=== PATIENT | male | born 1985 | race Hispanic/Latino ===

== ENCOUNTER 2020-06-20 01:02 | Inpatient (IN) | payer OTHER, SELFPAY ==
[2020-06-20] VITALS (12 sets, daily range): BP systolic 109–155; BP diastolic 65–94
[~2020-06-20] VITALS: Ht 182.9 cm; Wt 86.2 kg
[2020-06-20] MEDS ORDERED: SODIUM CHLORIDE 0.9% 500ML 500 ML IV ONE (01:37)
[2020-06-20] MEDS ORDERED: ONDANSETRON HCL 4 MG/2 ML VIAL ONE (02:06)
[2020-06-20] MEDS ORDERED: BENZONATATE 100 MG CAPSULE PO ONE (02:07)
[2020-06-20 02:33] LABS: BASOPHILS % (AUTO) 0.3 % (0.0-5.0); EOSINOPHILS % (AUTO) 0.3 % (0.0-8.0); HEMATOCRIT 56.3 % (42-54); LYMPHOCYTES % (AUTO) 6.5 % (21.0-51.0); MEAN CORPUSCULAR HEMOGLOBIN 28.3 pg (27.0-33.0); MEAN CORPUSCULAR HGB CONC 34.6 g/dL (32.0-36.0); MEAN CORPUSCULAR VOLUME 81.8 fL (79-99); MONOCYTES % (AUTO) 5.9 % (3.0-13.0); NEUTROPHILS % (AUTO) 85.8 % (40.0-77.0); PLATELET COUNT (AUTO) 424 K/uL (130-400); RED BLOOD CELL COUNT(AUTO) 6.88 MIL/uL (4.50-6.20); RED CELL DISTRIBUTION WIDTH 12.8 % (11.0-15.5); WHITE BLOOD COUNT (AUTO) 20.6 K/uL (4.8-10.8)
[2020-06-20 02:37] LABS: RAPID GROUP A STREP NEGATIVE (NEGATIVE)
[2020-06-20 02:50] LABS: ALBUMIN 5.1 g/dL (3.5-5.0); BILIRUBIN,TOTAL 0.7 mg/dL (0.2-1.0); CREATININE 2.2 mg/dL (0.5-1.5); MAGNESIUM 1.9 mg/dL (1.80-2.40); POTASSIUM 3.9 mmol/L (3.5-5.1); TOTAL PROTEIN, SERUM 9.3 g/dL (6.0-8.3)
[2020-06-20] MEDS ORDERED: SODIUM CHLORIDE 0.9% 100 ML IV ONE (03:09)
[2020-06-20] MEDS ORDERED: INSULIN HUMULIN R 100 UNIT/ML 3ML ONE (03:10)
[2020-06-20] MEDS ORDERED: ONDANSETRON HCL 4 MG/2 ML VIAL IV PRN (03:30)
[2020-06-20] MEDS ORDERED: ACETAMINOPHEN 325 MG TAB PO PRN ×2 (03:30)
[2020-06-20] MEDS ORDERED: SODIUM CHLORIDE 0.9% 1000ML 1,000 ML IV SCH (03:30)
[2020-06-20] MEDS ORDERED: INSULIN HUMULIN R 100 UNIT/ML 3ML IV SCH (03:30)
[2020-06-20] MEDS ORDERED: ERGOCALCIFEROL (VITAMIN D2) 50,000 UNIT CAPSULE PO ONE (03:30)
[2020-06-20] MEDS ORDERED: DEXTROSE 5 %-0.45 % NACL 1,000 ML IV PRN (03:30)
[2020-06-20] MEDS ORDERED: DIPHENHYDRAMINE HCL 25 MG CAPSULE PO PRN (03:30)
[2020-06-20] MEDS ORDERED: NITROGLYCERIN 0.4 MG SL TAB SL PRN (03:30)
[2020-06-20 03:45] LABS: ABG HCO3 5.7 mmol/L (21.0-28.0); ABG OXYGEN SATURATION 97.5 % (95.0-99.0); ABG PCO2 < 15 mmHg (35-48)
[2020-06-20] MEDS ORDERED: ALBUTEROL INHALER 90MCG/INH IH PRN (03:45)
[2020-06-20] MEDS ORDERED: SODIUM BICARB 8.4% 50ML SYRINGE IVP SCH ×2 (04:15→05:00)
[2020-06-20 04:19] LABS: PARTIAL THROMBOPLASTIN TIME 28.5 SEC (26.3-35.5); PROTHROMBIN TIME 10.8 SEC (9.6-11.6)
[2020-06-20] MEDS ORDERED: DOXYCYCLINE 100MG+NS 250ML IV SCH (05:00)
[2020-06-20] MEDS ORDERED: DOXYCYCLINE 100MG+NS 250ML 250 ML IV SCH (05:00)
[2020-06-20] MEDS ORDERED: CEFTRIAXONE SODIUM 1 GM IVP SCH (05:00)
--- NOTE | 2020-06-20 05:20 | NUR ---
ADMIT 0430 RECEIVED REPORT FROM CODY HERNANDEZ RN 0526 PT ADMIT RM [id number] ARRIVED ON INSULIN DRIP CONNECTED TO BEDSIDE MONITOR PT ROOM AIR ALERT ORIENTED NO DISTRESS NOTED AT THIS TIME. ADMISSION DATABASE COMPLETE PT TAKES NO HOME MEDS. HIEN DUARTE NOTIFIED OF PT ARRIVAL CURRENT STATUS MEDS GIVEN AND CURRENT CRITICAL ABG RESULTS. NO NEW ORDERS RECIEVED. WILL CONTINUE TO MONITOR PT.
[2020-06-20] MEDS: SODIUM CHLORIDE 0.9% 1000ML 1,000 ML IV SCH ×2 (05:48→09:08)
[2020-06-20 05:53] LABS: ABG BASE EXCESS -16.8 mmol/L (-2.0-3.0); ABG HCO3 7.8 mmol/L (21.0-28.0); ABG OXYGEN SATURATION 97.1 % (95.0-99.0); ABG PCO2 18 mmHg (35-48)
[2020-06-20] MEDS: ALBUTEROL INHALER 90MCG/INH IH SCH ×2 (06:00→09:08)
[2020-06-20] MEDS ORDERED: HEPARIN SODIUM 5000UNIT/ML 1ML VIAL SQ SCH (06:00)
[2020-06-20 06:11] LABS: CARBON DIOXIDE 12 mmol/L (21-32); CHLORIDE 92 mmol/L (101-111); CREATININE 1.7 mg/dL (0.5-1.5); GLOMERULAR FILTR. RATE CALC 49 mL/min (>60); GLUCOSE,RANDOM 305 mg/dL (70-105); POTASSIUM 3.2 mmol/L (3.5-5.1); SODIUM SERUM 133 mmol/L (136-145); UREA NITROGEN, BLOOD 22 mg/dL (7-18)
[2020-06-20] MEDS: SODIUM BICARB 50MEQ 50ML VIAL ONE ×3 (06:11→06:16)
[2020-06-20 06:16] LABS: CREATINE KINASE, TOTAL 86 U/L (21-232); LACTATE DEHYDROGENASE 163 U/L (81-234)
[2020-06-20] MEDS ORDERED: POTASSIUM CHLORIDE 10% ELIXIR 20 MEQ/15 ML UDCUP ONE (06:20)
[2020-06-20] MEDS ORDERED: POTASSIUM CHLORIDE 20MEQ/100ML 100 ML IV ONE (06:22)
[2020-06-20] MEDS: POTASSIUM CHLORIDE 10MEQ/100ML 100 ML IV PRN ×2 (06:34→09:09)
[2020-06-20] MEDS ORDERED: ASCORBIC ACID 500 MG TAB PO SCH (09:00)
[2020-06-20] MEDS ORDERED: ZINC SULFATE 220 CAPSULE PO SCH (09:00)
[2020-06-20] MEDS ORDERED: FAMOTIDINE/PF 20 MG/2 ML VIAL IV SCH (09:00)
[2020-06-20 10:12] LABS: CREATININE 1.5 mg/dL (0.5-1.5); MAGNESIUM 1.8 mg/dL (1.80-2.40); POTASSIUM 3.6 mmol/L (3.5-5.1)
--- NOTE | 2020-06-20 11:02 | NUR ---
PT NOTED TO BE ANXIOUS AND AGGRESSIVE. PT REQUESTING TO LEAVE AMA. THIS NURSE EDUCATED PT HE IS REALLY SICK AND LEAVING AMA COULD POTENTIALLY RESULT IN . PT VERBALIZED UNDERSTANDING AND SAID "I DON'T CARE LET ME ." THIS NURSE CONTINUED TO EDUCATE PT ON THE RISKS OF LEAVING AMA W/OUT RECEIVING PROPER TREATMENT UNTIL CLEARED BY DOCTORS FOR A SAFE DISCHARGE. PT VERBALIZED UNDERSTANDING AND CONTINUES TO REQUEST TO LEAVE AMA. PT SIGNED AMA. IV'S REMOVED AND PT DISCONNECTED FROM MONITORS AND WALKED OUT OF ICU UNIT.
== END 2020-06-20 12:29 | disposition left against medical advice (07) | DRG 871 ==
LOC: EDH 01:02 → EDHIP 01:03 → 2CH 04:54
PROVIDERS: ADMIT Internal Medicine; ATTEND Internal Medicine
DX: A41.9 Sepsis, unspecified organism (principal); E11.10 Type 2 diabetes mellitus with ketoacidosis without coma; R65.21 Severe sepsis with septic shock; N17.9 Acute kidney failure, unspecified; E87.1 Hypo-osmolality and hyponatremia; R74.8 Abnormal levels of other serum enzymes; Z20.828 Contact with and (suspected) exposure to other viral communicable diseases
CPT/HCPCS: 36415; 36600; 71045; 80048; 80053; 82010; 82550; 82728; 82803; 82948; 83605; 83615; 83690; 83735; 83930; 84145; 84484; 85025; 85378; 85610; 85730; 86140; 87040; 87486; 87581; 87633; 87798; 87804; 87880; 93005; 99291; G0378; J0696; J1644; J1815; J2405; J3480; J3490; J7030; J7040; U0003